=== PATIENT | male | born 1945 | race Caucasian/White ===

== ENCOUNTER 2024-02-28 08:15 | Inpatient (IN) | payer MEDICARE, OTHER ==
[~2024-02-28] VITALS: Ht 185.4 cm; Wt 124.7 kg
[2024-02-29] MEDS ORDERED: MELO-102 PO (10:36)
[2024-02-29] MEDS ORDERED: GEMF600T90 PO (10:36)
[2024-02-29] MEDS ORDERED: GLIM2TAB6 PO (10:36)
[2024-02-29] MEDS ORDERED: EZET10TA6 PO (10:36)
[2024-02-29] MEDS ORDERED: FLO0.4C PO (10:36)
[2024-02-29 10:47] LABS: BASOPHILS # (AUTO) 0.1 X10'3 (0-0.2); EOSINOPHILS # (AUTO) 0.1 X10'3 (0-0.9)
[2024-02-29 10:49] LABS: BASOPHILS % (AUTO) 1.4 % (0-1); EOSINOPHILS % (AUTO) 0.9 % (0-6); LYMPHOCYTES # (AUTO) 2.4 X10'3 (1.1-4.8); LYMPHOCYTES % (AUTO) 37.8 % (21-51); MEAN CORPUSCULAR HEMOGLOBIN 33.5 PG (27.0-31.0); MEAN CORPUSCULAR VOLUME 95.8 FL (78-98); MEAN PLATELET VOLUME 7.1 FL (7.4-10.4); MONOCYTES % (AUTO) 16.6 % (2-12); NEUTROPHILS # (AUTO) 2.7 X10'3 (1.8-7.7); NEUTROPHILS % (AUTO) 43.3 % (42-75); PRE OP HEMATOCRIT 39.8 % (42.0-52.0); PRE OP HEMOGLOBIN 13.9 g/dL (14.0-17.9); PRE OP PLATELET COUNT 264 X10'3 (140-440); PRE OP WHITE BLOOD COUNT 6.3 10'3 (4.8-10.8); RED BLOOD COUNT 4.16 X10'6 (4.70-6.10); RED CELL DISTRIBUTION WIDTH 13.4 % (11.5-14.5)
[2024-02-29 11:07] LABS: ALBUMIN 4.3 G/DL (3.4-5.0); ALBUMIN/GLOBULIN RATIO 1.4 (1.1-1.5); ALKALINE PHOSPHATASE 84 IU/L (46-116); BLOOD UREA NITROGEN 19 MG/DL (7-18); BUN/CREATININE RATIO 17.6 (10.0-20.0); CHLORIDE 111 MMOL/L (99-107); CREATININE 1.08 MG/DL (0.60-1.10); PRE OP ALT 35 U/L (30-65); PRE OP ANION GAP 11 (8-16); PRE OP AST 23 U/L (10-37); PRE OP BILIRUB, TOTAL 0.3 MG/DL (0.0-1.0); PRE OP GLUCOSE 109 MG/DL (70-104); PRE OP POTASSIUM 3.5 MMOL/L (3.4-5.1); PRE OP SODIUM 145 MMOL/L (135-145); TOTAL CARBON DIOXIDE 23.5 MMOL/L (24-32); TOTAL PROTEIN 7.4 G/DL (6.4-8.2); eGFR 66 ML/MIN
[2024-02-29 11:11] LABS: PLATELET ESTIMATE NORMAL; TOTAL CELLS COUNTED 100
[2024-03-05] MEDS ORDERED: AMLO1TAB13 PO (11:16)
[2024-03-05] MEDS ORDERED: METF-436 PO (11:19)
[2024-03-06] VITALS (29 sets, daily range): BP systolic 99–166; BP diastolic 54–92; PULSE 60–75; RESP 14–24; TEMP 96.3–97.4; O2SAT 93–98
[2024-03-06] MEDS: Cefazolin 3 GM/100ML NS IVPB 100 ML IV ONE (05:30)
[2024-03-06] MEDS ORDERED: VANCOMYCIN 1,500MG inj. 1,500 MG in normal saline 500ml IV soln 300 ML IV ONE (05:30)
[2024-03-06] MEDS: potassium cl 20mEq in 1/2 NS 1,000 ML IV SCH (05:50)
[2024-03-06] MEDS: famotidine 20mg tablet PO ONE (08:32)
[2024-03-06] MEDS: tranexamic acid 650mg tablet PO ONE (08:33)
[2024-03-06] MEDS: ringers solution, lacted 1,000 ML IV SCH ×2 (08:33→13:40)
[2024-03-06] MEDS: VANCOMYCIN/WATER FOR INJ (PEG) 1.5GM/300 ML IVPB IV ONE (08:33)
[2024-03-06] MEDS ORDERED: BUPIVACAINE/MELOXICAM 14 ML VIAL IL ONE (09:59)
[2024-03-06] MEDS ORDERED: BUPIVAcaine/dex-water/PF 7.5 mg/ml 2ml ampul ONE (11:08)
[2024-03-06] MEDS ORDERED: tetracaine 1% (10mg/ml) pres. free inj. ONE (11:16)
[2024-03-06] MEDS ORDERED: midazolam 1 mg/ML 2ml injection ONE ×2 (11:20→11:45)
[2024-03-06] MEDS ORDERED: propofol inj 20 ML IV ONE ×3 (12:03)
[2024-03-06] MEDS ORDERED: dexamethasone sod phosphate 4mg/ml inj. ONE (12:04)
[2024-03-06] MEDS ORDERED: ROPIVAcaine 0.5% (5mg/ml) 30ml vial ONE (12:04)
[2024-03-06] MEDS ORDERED: 0.9 % SODIUM CHLORIDE 10 ML VIAL ONE ×2 (12:04)
[2024-03-06] MEDS ORDERED: hydrALAZINE 20mg/ml inj. IV PRN (13:40)
[2024-03-06] MEDS ORDERED: meperidine/PF 25mg/ml syringe IV PRN (13:40)
[2024-03-06] MEDS ORDERED: ondansetron/PF 4mg/2ml inj IV PRN ×2 (13:40→13:50)
[2024-03-06] MEDS ORDERED: labetalol 20mg/4ml (5mg/ml) syringe IV PRN (13:40)
[2024-03-06] MEDS ORDERED: morphine 4 MG/ML inj SYRINge IV PRN (13:40)
[2024-03-06] MEDS ORDERED: HYDROmorphone/PF 0.2 MG/ML SYRINGE IV PRN ×2 (13:40)
[2024-03-06] MEDS ORDERED: proCHLORperazine 10 MG/2 ml inj IV PRN (13:40)
[2024-03-06] MEDS ORDERED: HYDROmorphone inj. 0.5 MG/0.5 ML DISP.SYRIN IV PRN (13:50)
[2024-03-06] MEDS ORDERED: magnesium hydroxide 30ml (MOM) UD suspension PO PRN (13:50)
[2024-03-06] MEDS ORDERED: naloxone 0.4 mg/ml inj IV PRN (13:50)
[2024-03-06] MEDS ORDERED: bisacodyl 10mg suppository rectal RC PRN (13:50)
[2024-03-06] MEDS ORDERED: HYDROmorphone 1 mg/ml syringe IV PRN (13:50)
[2024-03-06] MEDS ORDERED: diphenhydrAMINE 25mg capsule PO PRN ×2 (13:50)
[2024-03-06] MEDS ORDERED: acetaminophen 325mg tablet PO PRN (13:50)
[2024-03-06] MEDS ORDERED: oxyCODONE IR 5mg (immed. release) tablet PO PRN (13:50)
[2024-03-06] MEDS: acetaminophen 325mg tablet PO SCH (14:00)
[2024-03-06] MEDS: acetaminophen 1,000mg/100ml IV 100 ML IV ONE (15:43)
[2024-03-06] MEDS ORDERED: ceFAZolin/D5W- 1GM premix 50 ML IV SCH (16:00)
[2024-03-06] MEDS: morphine 2 MG/ML inj. syringe IV PRN (16:43)
[2024-03-06] MEDS: metFORMIN 500mg tablet PO SCH (20:09)
[2024-03-06] MEDS: gemfibrozil 600mg tablet PO SCH (20:09)
[2024-03-06] MEDS: ceFAZolin/D5W- 1GM premix 50 ML IV SCH (20:11)
[2024-03-06] MEDS: sennosides 8.6mg tablet PO SCH (20:11)
[2024-03-06] MEDS: tamsulosin 0.4mg capsule PO SCH (20:34)
[2024-03-06] MEDS: glimepiride 1 MG tablet PO SCH (22:13)
[2024-03-06] MEDS: VANCOMYCIN 1GM 200ML H20 (PEG) 200 ML IV SCH (22:14)
[2024-03-07 01:41] VITALS: BP 145/72; PULSE 61; RESP 18; TEMP 98.3; O2SAT 97
[2024-03-07] MEDS: oxyCODONE IR 5mg (immed. release) tablet PO PRN (05:29)
[2024-03-07 06:00] VITALS: BP 145/65; PULSE 63; RESP 16; TEMP 97.4; O2SAT 97
[2024-03-07 06:42] LABS: BASOPHILS % (AUTO) 0.3 % (0-1); EOSINOPHILS # (AUTO) 0.1 X10'3 (0-0.9); EOSINOPHILS % (AUTO) 0.6 % (0-6); HEMATOCRIT 35.2 % (42.0-52.0); HEMOGLOBIN 12.3 g/dl (14.0-17.9); LYMPHOCYTES # (AUTO) 1.9 X10'3 (1.1-4.8); LYMPHOCYTES % (AUTO) 15.4 % (21-51); MEAN CORPUSCULAR HEMOGLOBIN 33.7 PG (27.0-31.0); MEAN CORPUSCULAR VOLUME 96.2 FL (78-98); MEAN PLATELET VOLUME 7.5 FL (7.4-10.4); MONOCYTES # (AUTO) 2.9 X10'3 (0-0.9); MONOCYTES % (AUTO) 23.3 % (2-12); NEUTROPHILS # (AUTO) 7.5 X10'3 (1.8-7.7); NEUTROPHILS % (AUTO) 60.4 % (42-75); PLATELET COUNT 263 X10'3 (140-440); RED BLOOD COUNT 3.66 X10'6 (4.70-6.10); RED CELL DISTRIBUTION WIDTH 13.6 % (11.5-14.5); WHITE BLOOD COUNT 12.4 X10'3 (4.5-11.0)
[2024-03-07 06:58] LABS: ANION GAP 12 (8-16); CHLORIDE 107 MMOL/L (99-107); POTASSIUM 3.5 MMOL/L (3.5-5.1); SODIUM 142 MMOL/L (135-145); TOTAL CARBON DIOXIDE 23.1 MMOL/L (24-32)
[2024-03-07] MEDS: aspirin 325mg tablet PO SCH (08:10)
[2024-03-07] MEDS: losartan 50mg tablet PO SCH (08:11)
[2024-03-07] MEDS: ezetimibe 10mg tablet PO SCH (08:12)
[2024-03-07] MEDS: amLODIPine 5mg tablet PO SCH (08:20)
[2024-03-07 08:34] LABS: TOTAL CELLS COUNTED 100
[2024-03-07 08:38] LABS: PLATELET ESTIMATE NORMAL
[2024-03-07 10:00] VITALS: BP 137/50; PULSE 70; RESP 16; TEMP 97.9; O2SAT 96
[2024-03-07] MEDS: MELOXICAM 7.5 MG TABLET PO SCH (10:50)
[2024-03-07] MEDS ORDERED: celeCOXIB 100mg capsule PO SCH (20:00)
[2024-03-08] MEDS ORDERED: acetaminophen 325mg tablet PO PRN (18:20)
== END 2024-03-07 13:55 | disposition home health service (06) | DRG 470 ==
LOC: PAS IN 03-06 07:22 → PACU 03-06 13:41 → ORTHO 4S 03-06 16:46
PROVIDERS: ADMIT Orthopaedic Surgery; ATTEND Orthopaedic Surgery
PROC: 8E0YXBZ Computer Assisted Procedure of Lower Extremity (ICD-10-PCS; 2024-03-06)
PROC: 8E0Y0CZ Robotic Assisted Procedure of Lower Extremity, Open Approach (ICD-10-PCS; 2024-03-06)
PROC: 0SRC0J9 Replacement of Right Knee Joint with Synthetic Substitute, Cemented, Open Approach (ICD-10-PCS; principal; 2024-03-06 11:08)
DX: M17.11 Unilateral primary osteoarthritis, right knee (principal)
CPT/HCPCS: 36415; 80051; 80053; 82948; 83036; 85007; 85025; 87081; 93005; 97110; 97116; 97161; 97530; A4215; A4615; A6449; A7000; C1713; C1776; G0378; J0131; J0690; J0735; J1100; J2250; J2270; J2704; J2795; J3370; J3372; J3480; J3490; J7040; J7120